=== PATIENT | female | born 1985 | race Caucasian/White ===

== ENCOUNTER 2021-01-09 12:54 | Emergency (ER) | payer OTHER, SELFPAY ==
[~2021-01-09] VITALS: Ht 170.2 cm; Wt 98.3 kg
--- NOTE | 2021-01-09 13:02 | NUR ---
EKG DONE IN TRIAGE.
--- NOTE | 2021-01-09 13:20 | NUR ---
wad lubricator completed. Square breathing for anxiety/hyperventilation start with limited success. IV started and labs drawn in anticipation of future orders.
[2021-01-09] MEDS ORDERED: FAMOTIDINE 20 MG/2 ML ONE (13:37)
[2021-01-09] MEDS ORDERED: MAALOX/HYOSCYAMINE/LIDOCAINE 45 ML BTL ONE (13:37)
[2021-01-09] MEDS ORDERED: METOCLOPRAMIDE 5 MG/ML, 2ML ONE (13:37)
[2021-01-09 13:44] LABS: BASOPHILS % (AUTO) 1 % (0-1); EOSINOPHILS % (AUTO) 1 % (1-7); LYMPHOCYTES % (AUTO) 26 % (22-44); MEAN CORPUSCULAR HEMOGLOBIN 31.5 pg (27.0-34.8); MEAN CORPUSCULAR HGB CONC 34.6 g/dL (32.4-35.8); MEAN PLATELET VOLUME 8.8 fL (7.4-10.4); MONOCYTES % (AUTO) 7 % (2-9); NEUTROPHILS % (AUTO) 66 % (42-75); PLATELET COUNT 292 x10^3/uL (130-400); RED BLOOD COUNT 4.57 x10^6/uL (3.82-5.3); RED CELL DISTRIBUTION WIDTH 12.8 % (9.6-15.2)
--- NOTE | 2021-01-09 13:46 | NUR ---
Pt meds given and IV bolus started. PCXR completed.
[2021-01-09 13:56] LABS: ALANINE AMINOTRANSFERASE 39 U/L (12-78); ANION GAP 4 mmol/L (5-15); CALCIUM 9.6 mg/dL (8.5-10.1); CHLORIDE 107 mmol/L (98-107); CREATININE 0.76 mg/dL (0.55-1.02)
[2021-01-09] MEDS ORDERED: FAMOTIDINE 20 MG/2 ML IVPush ONE (14:00)
[2021-01-09] MEDS ORDERED: SODIUM CHLORIDE 0.9% 1,000ML IVBOLUS ONE (14:00)
[2021-01-09] MEDS ORDERED: MAALOX/HYOSCYAMINE/LIDOCAINE 45 ML BTL PO ONE (14:00)
[2021-01-09] MEDS ORDERED: METOCLOPRAMIDE 5 MG/ML, 2ML IVPush ONE (14:00)
[2021-01-09 14:01] LABS: ALKALINE PHOSPHATASE 63 U/L (45-117); BILIRUBIN,TOTAL 0.4 mg/dL (0.2-1.0); TOTAL PROTEIN 8.3 g/dL (6.4-8.2); TROPONIN I < 0.015 ng/mL (0.000-0.045)
--- NOTE | 2021-01-09 14:15 | NUR ---
Pt reassessment with some decrease in pain and nausea with anxiety and hyperventilation resolved at this time.
[2021-01-09 14:43] VITALS: BP 155/94
--- NOTE | 2021-01-09 14:55 | NUR ---
Pt found standing up and racking with increased RR again and states pain in chest feels like it's coming back after MD states she is being sent home. Discussed follow up with PCP and to wait for d/c paperwork. Pt states she wants to go home. IVF still with 400mL to infuse for full bolus admin. Pt reminded to keep arm straight.
== END 2021-01-09 15:20 | disposition home or self-care (01) ==
LOC: ED 15:05
DX: K29.00 Acute gastritis without bleeding (principal); K21.9 Gastro-esophageal reflux disease without esophagitis; R10.13 Epigastric pain; R07.89 Other chest pain; R11.2 Nausea with vomiting, unspecified
CPT/HCPCS: 36415; 71045; 80053; 83690; 84484; 85025; 93005; 96361; 96374; 96375; 99285; J2765; J7030

== ENCOUNTER 2021-01-12 09:37 | Emergency (ER) | payer SELFPAY ==
[~2021-01-12] VITALS: Ht 170.2 cm; Wt 90.5 kg
--- NOTE | 2021-01-12 10:13 | NUR ---
Pt c/o CP, VOMITING, DIARRHEA X 6 DAYS. WAS HERE ON SATURDAY FOR SIMILAR SX. HAS TAKEN ZOFRAN (LAST DOSE 629) PEPCID (LAST DOSE YESTERDAY) ANOTHER RX YESTERDAY (PRESCRIBED ON SATURDAY). PT TACHYPNIC, SHAKING ARMS, JIGGLING RT LEG, CRYING. C/O PAIN "ACROSS MY CHEST". LAST MARIJUANA USE: 1 WEEK AGO. DENIES OTHER ILLEGAL DRUG USE. ETOH: 2 SHOTS LAST NOC. LAST ORAL INTAKE: DENIES FOOD INTAKE TODAY & YESTERDAY, EXCEPT FOR ETOH. LAST BM: THIS AM - [facility]. PT ACCOMPANIED BY FRIEND, WHO'S ASSISTING W/ HX. COVID VACC #2 ON 01/03/21. CARDIAC MONTITOR APPLIED.
[2021-01-12] MEDS ORDERED: PEPCID (10:23)
[2021-01-12] MEDS ORDERED: ZOFRAN (10:23)
[2021-01-12] MEDS ORDERED: LORazepam 2 MG/ML, 1ML ONE (10:59)
[2021-01-12] MEDS ORDERED: MAALOX/HYOSCYAMINE/LIDOCAINE 45 ML BTL ONE (10:59)
[2021-01-12] MEDS ORDERED: MORPHINE SULFATE 4 MG/ML, 1ML ONE (10:59)
[2021-01-12] MEDS ORDERED: ONDANSETRON 2MG/ML, 2ML ONE (10:59)
[2021-01-12] MEDS ORDERED: LORazepam 2 MG/ML, 1ML IV ONE (11:00)
[2021-01-12] MEDS ORDERED: FAMOTIDINE 20 MG/2 ML ONE (11:00)
[2021-01-12] MEDS ORDERED: SODIUM CHLORIDE FLUSH 10ML SYR IVF ONE (11:00)
[2021-01-12] MEDS ORDERED: MAALOX/HYOSCYAMINE/LIDOCAINE 45 ML BTL PO ONE (11:00)
[2021-01-12] MEDS ORDERED: SODIUM CHLORIDE 0.9% 1,000ML IVBOLUS ONE (11:00)
[2021-01-12] MEDS ORDERED: FAMOTIDINE 20 MG/2 ML IVPush ONE (11:00)
[2021-01-12] MEDS ORDERED: ONDANSETRON 2MG/ML, 2ML IVPush ONE (11:00)
[2021-01-12] MEDS ORDERED: MORPHINE SULFATE 4 MG/ML, 1ML IVPush PRN (11:00)
--- NOTE | 2021-01-12 11:04 | NUR ---
AMBULATORY TO & FROM [facility] W/OUT INCIDENT; GAIT STEADY. VOIDED SPECIMEN PROVIDED.
--- NOTE | 2021-01-12 11:27 | NUR ---
piv INTIATED, NS BOLUS HUNG, PT MEDICATED PER EMAR. SIDE RAILS UP X2, CALL LIGHT W/IN REACH, FRIEND IN ROOM.
[2021-01-12 12:03] LABS: BASOPHILS % (AUTO) 1 % (0-1); EOSINOPHILS % (AUTO) 1 % (1-7); LYMPHOCYTES % (AUTO) 25 % (22-44); MEAN CORPUSCULAR HEMOGLOBIN 30.8 pg (27.0-34.8); MEAN CORPUSCULAR HGB CONC 33.9 g/dL (32.4-35.8); MEAN PLATELET VOLUME 8.7 fL (7.4-10.4); MONOCYTES % (AUTO) 9 % (2-9); NEUTROPHILS % (AUTO) 65 % (42-75); PLATELET COUNT 263 x10^3/uL (130-400); RED BLOOD COUNT 4.43 x10^6/uL (3.82-5.3); RED CELL DISTRIBUTION WIDTH 13.3 % (9.6-15.2)
[2021-01-12 12:13] LABS: ALANINE AMINOTRANSFERASE 41 U/L (12-78); ALBUMIN 3.5 g/dL (3.4-5.0); ANION GAP 5 mmol/L (5-15); CALCIUM 9.1 mg/dL (8.5-10.1); CHLORIDE 107 mmol/L (98-107); CREATININE 0.84 mg/dL (0.55-1.02)
--- NOTE | 2021-01-12 12:15 | NUR ---
RESTING ON GURNEY; REPORTS CONTINUING NAUSEA; NS INFUSING.
[2021-01-12 12:18] LABS: ALKALINE PHOSPHATASE 53 U/L (45-117); BILIRUBIN,TOTAL 0.3 mg/dL (0.2-1.0)
[2021-01-12] MEDS ORDERED: METOCLOPRAMIDE 5 MG/ML, 2ML IVPush ONE (12:30)
[2021-01-12] MEDS ORDERED: METOCLOPRAMIDE 5 MG/ML, 2ML ONE (12:41)
--- NOTE | 2021-01-12 12:47 | NUR ---
REGLAN GIVEN PER EMAR. PT REPORTS DECREASED PAIN (4/10).
[2021-01-12 13:59] VITALS: BP 147/85
--- NOTE | 2021-01-12 14:00 | NUR ---
PT SITTING COMFORTABLY ON GURNEY; STATES "I FEEL GOOD". IV DC'D. WRITTEN DC INSTRUCTIONS DISCUSSED W/ PT; UNDERSTANDING VERBALIZED. PT AMBULATORY TO DC DESK W/ STEADY GAIT, ACCOMPANIED BY FRIEND.
== END 2021-01-12 14:02 | disposition home or self-care (01) ==
LOC: ED 13:00
DX: R19.7 Diarrhea, unspecified (principal); R11.2 Nausea with vomiting, unspecified; E86.0 Dehydration; R07.89 Other chest pain; K21.9 Gastro-esophageal reflux disease without esophagitis
CPT/HCPCS: 36415; 80053; 83690; 84703; 85025; 93005; 96361; 96374; 96375; 99285; J2060; J2270; J2405; J2765; J7030